=== PATIENT | male | born 1960 | race Caucasian/White ===

== ENCOUNTER 2017-03-08 07:41 | Day surgery (SDC) | payer OTHER ==
[~2017-03-08 07:41] MED LIST: LIDOCAINE HCL 1% MPF SOL ONE; PROPOFOL 500 MG/50 ML EMU IV ONE
[2017-03-08 09:58] VITALS: TEMP 97.3
[2017-03-08 10:14] VITALS: O2SAT 100
[2017-03-08 10:22] VITALS: BP 121/77; PULSE 63; RESP 18
== END 2017-03-08 10:28 | disposition home or self-care (01) | DRG 382 ==
LOC: SURG 07:41
PROVIDERS: ATTEND Internal Medicine Gastroenterology
DX: K22.70 Barrett's esophagus without dysplasia (principal); K44.9 Diaphragmatic hernia without obstruction or gangrene
CPT/HCPCS: 99001; J2001; J2704

== ENCOUNTER 2018-09-03 09:09 | Emergency (ER) | payer OTHER ==
[2018-09-03] MEDS ORDERED: IBUPROFEN 400 MG TAB PO ONE (09:35)
[2018-09-03] MEDS ORDERED: IBUPROFEN 400 MG TAB ONE (09:40)
[2018-09-03] MEDS ORDERED: ONDANSETRON 4 MG ODT ONE (09:46)
[2018-09-03] MEDS ORDERED: ONDANSETRON 4 MG ODT BU ONE (09:46)
[2018-09-03 09:58] LABS: BASOPHILS % (AUTO) 0 % (0-3); EOSINOPHILS % (AUTO) 1 % (0-9); HEMATOCRIT 39 % (39-53); HEMOGLOBIN 13.4 gm/dl (13.5-17.7); LYMPHOCYTES % (AUTO) 15.8 % (10-50); MEAN CORPUSCULAR HEMOGLOBIN 29.8 pg (27.0-32.0); MEAN CORPUSCULAR HGB CONC 34.7 gm/dl (32.0-36.0); MEAN CORPUSCULAR VOLUME 86 fL (80-100); MONOCYTES % (AUTO) 14.4 % (0-12); NEUTROPHILS % (AUTO) 68.7 % (37-80)
[2018-09-03 10:10] VITALS: TEMP 101.8
[2018-09-03 10:40] VITALS: BP 137/80; PULSE 96; RESP 18; O2SAT 98
== END 2018-09-03 10:28 | disposition home or self-care (01) | DRG 156 ==
LOC: ED 09:09
DX: H60.92 Unspecified otitis externa, left ear (principal); H66.92 Otitis media, unspecified, left ear
CPT/HCPCS: 36415; 85025; 99282; 99283; A9270-GY

== ENCOUNTER 2019-04-30 10:55 | Day surgery (SDC) | payer OTHER | END 2019-04-30 13:32 | disposition home or self-care (01) | LOC: SURG 10:55 ==